=== PATIENT | male | born 1955 ===

== ENCOUNTER 2017-11-16 15:30 | Outpatient (RCR) | payer OTHER ==
[2017-10-07 15:24] VITALS: BP 124/83
[2017-10-12 15:58] LABS: PLATELET COUNT, AUTOMATED 216 K/uL (150-450)
[2017-10-14 11:49] VITALS: BP 121/73
--- NOTE | 2017-10-14 14:52 | RADIOLOGY IMAGING REPORT ---
FACILITY: [facility] PATIENT NAME: Ly Ham : 1955 MR: [id number] V: [id number] EXAM DATE: ORDERING PHYSICIAN: NIHARIKA LEI TECHNOLOGIST: [place] [facility] [place] Ly Ham : 1955 Visit/Account:[id number] Date of Sevice: 10/14/2017 ABDOMEN/PELVIS WITH CONTRAST HISTORY: Prostate cancer TECHNIQUE: Following administration of IV contrast contiguous axial images acquired through the abdom en/pelvis. Coronal and sagittal reformatting also performed. Dose Lowering Technique One of the following dose optimization techniques was utilized in the performance of this exam: Autom ated exposure control; adjustment of the mA and/or kV according to the patient's size; or use of an i terative reconstruction technique. Specific details can be referenced in the facility's radiology C T exam operational policy. CONTRAST: 75 mL Isovue-370 COMPARISON: None. FINDINGS: Visualized lung bases: Negative. Hepatobiliary: Negative. Spleen: Negative. Adrenals: Negative. Pancreas: Negative. Kidneys ureters or bladder: 1.7 cm cyst in the medial mid right kidney Genitalia: There appears to been a prostatectomy. There are several calcifications projecting along the anterior aspect the prostatectomy bed GI: There is extensive diverticulosis throughout the left-sided colon although no CT evidence of acu te diverticulitis. The appendix is visualized does not appear inflamed. There is no evidence of bow el obstruction. Vessels/spaces/nodes: There are mild vascular calcifications throughout the abdomen and pelvis. No pathologic-appearing adenopathy is seen Bones/soft tissues: There is a tiny umbilical hernia containing fat. There are spondylotic changes in the lumbar spine most prominent at L2-3 and L4-5. No aggressive appearing bone lesions are seen. There are mild sclerotic changes at the right SI joint Additional findings: None pertinent. IMPRESSION: There appears to been a prostatectomy. 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
[~2017-11-16 15:30] MED LIST: ATOR40TA24 PO; BICA50TA39 PO; IOPAMIDOL 76% 75 ML INFUS BTL 75 ML ONE; LANS30TA12 PO; LISI-362 PO; TAMS0.4C25 PO
[2017-11-17] MEDS ORDERED: METF-410 PO (08:50)
[2017-11-17] MEDS ORDERED: BICA50TA39 PO (08:51)
== END 2017-12-03 09:22 | disposition home or self-care (01) ==
LOC: RAON 15:30
PROVIDERS: ATTEND Radiology Radiation Oncology
DX: C61 Malignant neoplasm of prostate (principal); R97.21 Rising PSA following treatment for malignant neoplasm of prostate; Z92.3 Personal history of irradiation; E78.00 Pure hypercholesterolemia, unspecified; I10 Essential (primary) hypertension; Z79.899 Other long term (current) drug therapy; N28.1 Cyst of kidney, acquired; K57.30 Diverticulosis of large intestine without perforation or abscess without bleeding; K42.9 Umbilical hernia without obstruction or gangrene
CPT/HCPCS: 36415; 74177; 84153; 85025; 99212; 99213; Q9967; 82040; 82247; 82310; 82374; 82435; 82565; 82947; 84075; 84132; 84155; 84295; 84450; 84460; 84520

== ENCOUNTER 2018-05-24 08:30 | Outpatient (RCR) | payer OTHER ==
[~2018-05-24 08:30] MED LIST changes: +BICA50TA13 PO; -BICA50TA39 PO; -IOPAMIDOL 76% 75 ML INFUS BTL 75 ML ONE; +METF-450 PO
[2018-05-24 08:46] VITALS: BP 132/78
== END 2018-08-05 16:04 | disposition home or self-care (01) ==
LOC: SPU 08:30
PROVIDERS: ATTEND Radiology Radiation Oncology
DX: C61 Malignant neoplasm of prostate (principal)
CPT/HCPCS: 36415; 84153

== ENCOUNTER 2018-06-21 15:29 | Outpatient (RCR) | payer OTHER ==
[2018-03-31 08:23] VITALS: BP 148/86
[2018-06-20 08:31] VITALS: BP 134/93
--- NOTE | 2018-06-21 23:07 | ONCOLOGY FOLLOW UP NOTE ---
EVENT DATE: June 21, 2018 REASON FOR VISIT Oncology reassessment. ONCOLOGY HISTORY 1. Rachel 6 and Rachel 7, marked to poorly differentiated adenocarcinoma of the prostate. Tumor was 4 + 3 = 7 tumor involving 20% of the gland with extension to multiple margins at the time of surgery (left posterior, left anterior, and left apical). 2. Persistent PSA elevation postoperatively of 0.42 ng/mL with referral for external beam radiotherapy. Patient was treated with shrinking field technique to 60 cGy in standard fractionation with treatment completed 04/25/16. Additionally, patient was treated with combination bicalutamide and external beam radiotherapy. 3. Patient presently on bicalutamide 50 mg q. day or every other day. INTERVAL HISTORY Dr. Ham was seen back in the Oncology Clinic accompanied by his spouse. He is a gentleman who had T3a disease back in November 2015 and underwent a radical prostatectomy on 11/15/15. Postoperatively, he had an elevated PSA, and with positive margins, he was advised to have external beam radiotherapy, which was then completed. Off therapy, the patient's PSA has risen to 0.2 ng/mL which was quite concerning to the patient, so he was placed back on bicalutamide on a q. day or every other day program with the most recent PSA 0.08 on 06/20/18. Patient remains very concerned as his PSA has not fallen to zero, and he focuses on the number very closely. We are presently obtaining PSAs monthly. Patient also has some other symptomatology today. He relates to me that he has fatigue, which he rates as a five instead of two to three which he noticed previously. He also notices occasional breast sensitivity. The latter is due to bicalutamide and is dose-dependent. Finally, he has complained on multiple visits of chronic abdominal pain, etiology unclear. This is impairing the quality of his life. In discussing the latter complaint with the patient, I learned that three years ago, a provider in [place], [place], placed him on antibiotic and proton pump inhibitor which relieved some of his symptoms. Last year, he was treated for diverticulitis with antibiotics which also were successful, although he states the acute pain resolves, but not the chronic dull pain. He complains of constipation and excessive gas. He denies any history of abdominal surgery. He has not had a colonoscopy for the last six years. He did have a CT scan of the abdomen which I reviewed on the monitor this afternoon which was done back in October. That study was negative for anything significant as far as lymph nodes or any signs of bowel obstruction, etc. The patient has an AUA symptom score of 10 which is stable, nocturia, good control during the day. There is certainly a component of anxiety and frustration which are long-standing as the patient states, "I just want to feel normal." MEDICATIONS 1. Gas-X 50 mg q. day. 2. Lipitor 40 mg q. day. 3. Lisinopril 10 mg q. day. 4. Metformin 500 mg b.i.d. 5. Prevacid 30 mg q. day. MEDICAL HISTORY 1. Prostate cancer. 2. Type 2 diabetes. 3. Hypertension. 4. Hypercholesterolemia. SURGICAL HISTORY 1. Back surgery 2011. 2. Radical prostatectomy 11/15/15, positive margins. SOCIAL HISTORY . 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 Denies use of alcohol. REVIEW OF SYSTEMS Patient states he has occasional difficulty in remembering certain things he could remember in the past. He has some new spots on his back he would like me to inspect today. PHYSICAL EXAMINATION GENERAL: Pleasant, 62-year-old male, medium build. VITAL SIGNS: BP 130/79, pulse 80, respirations 16, O2 sat 94% on room air. LUNGS: Clear bilaterally. LYMPHATICS: No lymphadenopathy. CARDIOVASCULAR: Heart sounds regular. ABDOMEN: No gross organomegaly. RECTAL: Deferred due to low PSA. EXTREMITIES: No edema or cyanosis. BACK: Benign brown nevi. IMPRESSION 1. Adenocarcinoma of the prostate requiring triple modality therapy. Patient presently seems to have adverse effects to the bicalutamide, and I proposed several options listed below. 2. Nonspecific chronic abdominal pain, etiology unclear. 3. Fatigue, multifactorial. PLAN 1. Hold the bicalutamide for two weeks, then proceed with MRI scan of the pelvis to look for any enhancement in the operative bed or regional lymph nodes and inspect the bony structures. 2. Consider repeating the CT scan of the abdomen and pelvis by September or October if PSA continues to rise. 3. Refer for GI, colonoscopy and/or EGD. 4. Patient will be seen back in the Oncology Clinic in approximately three weeks to go over the results. I will also repeat his laboratory studies at the time of his MRI scan to include a CBC, CMP, and PSA. All questions were answered to his satisfaction over a 50-minute visit this afternoon. STEVE
== END 2018-06-28 ==
LOC: RAON 15:29
PROVIDERS: ATTEND Radiology Radiation Oncology
DX: C61 Malignant neoplasm of prostate (principal); Z92.3 Personal history of irradiation; E78.00 Pure hypercholesterolemia, unspecified; I10 Essential (primary) hypertension; Z79.899 Other long term (current) drug therapy
CPT/HCPCS: 36415; 84153; 99212

== ENCOUNTER 2018-07-19 13:20 | Outpatient (RCR) | payer OTHER ==
[2018-07-19 14:33] VITALS: BP 147/74
== END 2018-08-10 14:13 | disposition home or self-care (01) ==
LOC: RAON 13:20
PROVIDERS: ATTEND Radiology Radiation Oncology
DX: C61 Malignant neoplasm of prostate (principal); Z92.3 Personal history of irradiation; E78.00 Pure hypercholesterolemia, unspecified; I10 Essential (primary) hypertension; Z79.899 Other long term (current) drug therapy
CPT/HCPCS: 36415; 84153

== ENCOUNTER 2018-07-21 02:57 | Day surgery (SDC) | payer OTHER ==
[~2018-07-21] VITALS: Ht 170.2 cm; Wt 75.3 kg
[2018-07-21 07:43] VITALS: BP 143/76
[2018-07-21] MEDS ORDERED: NORMOSOL R SOLN(*) 1000 ML BAG 1,000 ML IV PRN (08:00)
[2018-07-21] MEDS ORDERED: LIDOCAINE/SOD BICARB 8.4% SYR ID ONE (08:00)
[2018-07-21] MEDS ORDERED: PROPOFOL EMUL(*) 10MG/ML 20 ML 60 ML ONE (08:12)
[2018-07-21 10:12] VITALS: BP 97/66
[2018-07-21 10:42] VITALS: BP 119/79
[2018-07-21 10:45] VITALS: BP 120/69
== END 2018-07-21 11:00 | disposition home or self-care (01) ==
LOC: OR 02:57
PROVIDERS: ATTEND Internal Medicine Gastroenterology
DX: Z12.11 Encounter for screening for malignant neoplasm of colon (principal); K63.5 Polyp of colon; K57.30 Diverticulosis of large intestine without perforation or abscess without bleeding; K64.9 Unspecified hemorrhoids; E11.9 Type 2 diabetes mellitus without complications; Z79.84 Long term (current) use of oral hypoglycemic drugs; I10 Essential (primary) hypertension
CPT/HCPCS: 00813; 36416; 43239; 45385; 82948; 88305; 88313; 88344; J2704

== ENCOUNTER 2018-09-08 17:08 | Outpatient (RCR) | payer OTHER | END 2018-09-09 15:00 | disposition home or self-care (01) | LOC: SPU 17:08 | PROVIDERS: ATTEND Radiology Radiation Oncology | DX: C61 Malignant neoplasm of prostate (principal) ==

== ENCOUNTER 2018-09-12 15:43 | Outpatient (RCR) | payer OTHER | END 2018-09-12 16:19 | disposition home or self-care (01) | LOC: RAON 15:43 | PROVIDERS: ATTEND Radiology Radiation Oncology | DX: C61 Malignant neoplasm of prostate (principal); Z92.3 Personal history of irradiation; E78.00 Pure hypercholesterolemia, unspecified; I10 Essential (primary) hypertension; Z79.899 Other long term (current) drug therapy ==

== ENCOUNTER 2018-09-14 09:32 | Outpatient (RCR) | payer OTHER ==
[2018-09-14 15:46] VITALS: BP 133/85
== END 2018-12-13 ==
LOC: SPU 09:32
PROVIDERS: ATTEND Radiology Radiation Oncology
DX: C61 Malignant neoplasm of prostate (principal)
CPT/HCPCS: 36415; 84153